=== PATIENT | female | born 1975 | race Caucasian/White ===

== ENCOUNTER 2019-11-19 07:24 | Day surgery (SDC) | payer OTHER, SELFPAY ==
[2019-11-18 13:04] VITALS: BMI 41.8
[2019-11-19] MEDS: sodium chloride 0.9% 1,000 ML 30 ML IV (07:50)
--- NOTE | 2019-11-19 07:53 | P.ANESASSM_ITS ---
Pre-Anesthetic Assessment Pre-Anesthetic Assessment: Height/Weight: Height 1.6 m Weight 107.048 kg Preop Diagnosis: Chronic GERD and history of colon polyp Proposed Procedure: Operation Date: 11/19/19 08:50 Proposed Procedures p EGD 83390 K21.9(Not Applicable) - Elver Cui MD s Colonoscopy 08409 Z86.010(Not Applicable) - Elver Cui MD Familial anesthetic complications: None Was Beta Carmen taken within 24 hours: Yes Last intake: Intake Last Liquid Date 11/18/19 Last Liquid Time 22:00 Last Solid Date 11/17/19 Last Solid Time 21:00 Social: Social History: No alcohol and No tobacco Exam: Pre-Anes Outpt Exam: alert, oriented x 3, clear to auscultation bilaterally and regular rate & rhythm Airway: Cervical ROM: WNL MP: 1 Dentition: Full Pulmonary: Pulmonary: None reported CV/HEM: CV/HEM: HTN : : None reported Hepatic: Hepatic: None reported GI: GI: GERD Metabolic: Metabolic: None reported Musc/skel: Musc/skel: None reported Neuropsych: Neuropsych: None reported Anesthetic Plan: ASA status: 2 Anesthesia: MAC Risk of > 500 ml blood loss (7ml/kg in children): No Meds/Allergies Current Medications: Current Medications Generic Name Dose Route Start Last Admin Trade Name Freq PRN Reason Stop Dose Admin Sodium Chloride 1,000 mls @ 30 ml s/hr 11/19/19 07:45 11/19/19 07:50 Sodium Chloride 0.9% IV 11/20/19 07:44 30 mls/hr .Q24H ORI Administration PFSH Anesthesia PFSH: Social History Smoking and tobacco status: never smoked Second hand smoke exposure: No Alcohol intake: current Alcohol intake frequency: holidays/special occasions only Alcohol type: wine Desire information about alcohol rehabilitation?: No Adopted: No Caregiver/support person: Yes Lives independently: Yes Household members: spouse Housing: House Marital status: service: No Current occupational status: employed Current occupation: time broker- highway maintenance crew worker Current occupational exposures/hazards: No Pets and animals: No History of recent travel: No Sexually active: Yes Current gender identity: Female Meaghan/Yazdanism: Buddhism Special meaghan needs: No Agree to transfusion: No Financial difficulty paying for basics: Decline to Answer Data Anesthesia Cardiac Studies: No Data to Display
[2019-11-19 07:59] VITALS: BP 141/86; PULSE 98; RESP 18; TEMP 36.8; O2SAT 97
--- NOTE | 2019-11-19 08:29 | P.HP_ITS ---
Same Day Surgery H&P Indication for Procedure/HPI DATE OF PROCEDURE: November 19, 2019 CHIEF COMPLAINT/INDICATIONFOR SURGICAL PROCEDURE: History of colon polyp and GERD PREOP DIAGNOSIS: Chronic GERD and history of colon polyp PLANNED PROCEDRUE: Operation Date: 11/19/19 08:50 Proposed Procedures p EGD 87615 K21.9(Not Applicable) - Elver Cui MD s Colonoscopy 16585 Z86.010(Not Applicable) - Elver Cui MD This is a pleasant 44 years old female patient morbidly obese with associated medical comorbidities was seen originally in my office for bariatric surgery consultation and she did give me a history of GERD which is chronic in nature in addition to history of colon polyps when she was 5 years of age, elected at this point to counseled the patient for diagnostic EGD and colonoscopy ROS All systems have been reviewed negative except as per the above Medications/Allergies* Home Medications Medication Instructions Recorded Confirmed Type estradiol 1 mg tablet 1 mg PO DAILY 09/25/19 11/18/19 History hydroxyzine HCl 25 mg tablet 25 mg PO DAILY PRN 09/25/19 11/18/19 History metoprolol tartrate 50 mg tablet 50 mg PO DAILY 09/25/19 11/18/19 History trazodone 150 mg tablet 150 mg PO BEDTIME tab 09/25/19 11/18/19 History Allergies/Adverse Reactions Allergy/AdvReac Type Severity Reaction Status Date / Time No Known Allergies Allergy Verified 11/19/19 08:30 Current Medications: Generic Name Dose Route Start Last Admin Trade Name Freq PRN Reason Stop Dose Admin Sodium Chloride 1,000 mls @ 30 mls/hr 11/19/19 07:45 11/19/19 07:50 Sodium Chloride 0.9% IV 11/20/19 07:44 30 mls/hr .Q24H ORI Administration Pertinent History/Comorbid Conditions* Medical History (Updated 09/27/19 @ 08:36 by Elver Cui MD) Hypertension Obesity Surgical History (Updated 09/27/19 @ 08:31 by Elver Cui MD) History of breast augmentation History of dilatation and curettage History of elbow surgery History of hysterectomy History of repair of right rotator cuff Family History (Updated 09/25/19 @ 15:03 by Maria Alejandra Hurt RN) Crohn's disease Father Cancer Mother ovarian cancer Father lung cancer Hypertension Father Denies family history of Anesthesia complication Bleeding disorder Social History Smoking and tobacco status: never smoked Second hand smoke exposure: No Alcohol intake: current Alcohol intake frequency: holidays/special occasions only Alcohol type: wine Desire information about alcohol rehabilitation?: No Adopted: No Caregiver/support person: Yes Lives independently: Yes Household members: spouse Housing: House Marital status: service: No Current occupational status: employed Current occupation: asphalt machine operator- installation helper Current occupational exposures/hazards: No Pets and animals: No History of recent travel: No Sexually active: Yes Current gender identity: Female Meaghan/Jehovah'S Witness: Episcopal Special meaghan needs: No Agree to transfusion: No Financial difficulty paying for basics: Decline to Answer Pertinent Exam Findings alert, oriented x 3, clear to auscultation bilaterally, regular rate & rhythm and procedure specific exam findings (Abdominal examination nontender nondistended soft morbidly obese) Recommendations Surgery/Procedure today (Diagnostic EGD and colonoscopy) Coding Level of Care Code Acute Gear Finisher for Steve Diana
[2019-11-19 09:06] VITALS: BP 122/60; PULSE 91; RESP 16; TEMP 36.6; O2SAT 97
[2019-11-19 09:16] VITALS: BP 128/86; PULSE 77; RESP 16; O2SAT 100
== END 2019-11-19 09:40 | disposition home or self-care (01) ==
PROVIDERS: PCP Family Medicine; Visit Provider Surgery
PROC: 0DJ08ZZ Inspection of Upper Intestinal Tract, Via Natural or Artificial Opening Endoscopic (ICD-10-PCS; CPT 43235; principal; 2019-11-19 08:45)
PROC: 0DJD8ZZ Inspection of Lower Intestinal Tract, Via Natural or Artificial Opening Endoscopic (ICD-10-PCS; CPT 45378; 2019-11-19 08:45)
DX: K21.9 Gastro-esophageal reflux disease without esophagitis (principal); Z86.010 Personal history of colon polyps; I10 Essential (primary) hypertension
CPT/HCPCS: 45378; 12345; 43235; 96360; 96361; J2001; J2704; J7030

== ENCOUNTER 2019-12-24 10:59 | Outpatient (CLI) | payer OTHER, SELFPAY ==
--- NOTE | 2019-12-24 11:00 | US_ITS ---
WS: [id number] RIGHT UPPER QUADRANT ULTRASOUND HISTORY: FATTY DYSPEPSIA COMPARISON: None available. Liver: 18.1 cm in length. Liver is enlarged with diffuse severe hepatic steatosis. The entire liver c annot be evaluated due to the attenuation. No bile duct dilatation is evident. Gallbladder: Poorly visualized gallbladder. CBD: Not visualized. Pancreas: Poorly visualized. Right kidney: 11.6 cm in length. Poorly visualized. Aorta and IVC: Poorly visualized. No ascites. US/US gall bladder 99317 IMPRESSION: 1. Extremely limited evaluation of the RIGHT upper quadrant due to body habitu s. 2. Mild hepatomegaly and marked hepatic steatosis. 3. Common bile duct, pancreas and RIGHT kidney are poorly visualized.
== END 2019-12-24 11:00 | disposition home or self-care (01) ==
LOC: RAD 11:04
PROVIDERS: PCP Family Medicine; Visit Provider Surgery
DX: R10.13 Epigastric pain (principal); R16.0 Hepatomegaly, not elsewhere classified; K76.0 Fatty (change of) liver, not elsewhere classified
CPT/HCPCS: 76705